=== PATIENT | female | born 2000 | race Caucasian/White ===

== ENCOUNTER 2019-01-19 20:11 | Emergency (ER) | payer OTHER, SELFPAY ==
[2019-01-19 20:12] VITALS: BP 110/71; PULSE 75; RESP 16; TEMP 36.8; O2SAT 100; BMI 19.0
[2019-01-19 20:29] VITALS: O2SAT 100
--- NOTE | 2019-01-19 20:51 | EKG12_ITS ---
Test Reason : SOB Blood Pressure : / mmHG Vent. Rate : 079 BPM Atrial Rate : 079 BPM P-R Int : 148 ms QRS Dur : 084 ms QT Int : 412 ms P-R-T Axes : 059 088 034 degrees QTc Int : 472 ms Normal sinus rhythm Normal ECG Confirmed by KEITH MEJIA, LUIS ([id number]), editor city [place] ([id number]) on 01/22/2019 1:24:08 PM Referred By: [place] Confirmed By:LUIS PARKER MD
--- NOTE | 2019-01-19 20:51 | RAD_ITS ---
STUDY: X-RAY CHEST REASON FOR EXAM: Female, 18 years old. Substernal chest pain TECHNIQUE: PA and lateral views of the chest. COMPARISON: None. FINDINGS: EKG leads overlie the chest The lungs are clear and expanded. There is no demonstrated pleural abnormality. Normal size heart. Normal mediastinum and radha. Normal visualized pulmonary arteries. Normal visualized aortic arch and descending thoracic aorta. Normal visualized thoracic spine. Normal visualized ribs, clavicles, and shoulders. There is no demonstrated abnormality of the visualized soft tissue structures of the upper abdomen. RAD/Chest PA and Lateral IMPRESSION: Normal x-ray examination of the chest. Electronically Signed: Hudson Hobson MD at 22:39 EDT , Service support ,
--- NOTE | 2019-01-19 20:55 | ED.RN ---
NO OLD EKGS IN MUSE
[2019-01-19 20:59] LABS: Bacteria 0 SEEN /hpf (None Seen); Color, Urine Yellow (Yellow); Glucose, Dipstick Normal (Normal); Ketone-Dipstick Negative (Negative); Leukocyte Esterase-Dipstick Negative /ul (Negative); Mucous, Urine 0 SEEN /hpf (<or=2+); Nitrite-Dipstick Negative (Negative); Occult Blood-Urine Negative /ul (Negative); Protein-Dipstick Negative (Negative); Red Blood Cells-Urine 0 SEEN /hpf (0-5); Urine Bilirubin Dipstick Negative (Negative); Urine Clarity Sl. Cloudy (Clear); Urine Urobilinogen Normal (Normal); White Blood Cells 0 SEEN /hpf (0-5)
[2019-01-19 21:06] LABS: Squamous Epithelial Cells - UA 0-5 SEEN /hpf (5-10)
[2019-01-19 21:23] LABS: Absolute Lymphocyte Count 2.66 X10^3/ul (0.83-4.51); Absolute Neutrophil Count 2.1 X10^3/uL (2.0-7.7); Basophil# 0.01 X10^3/uL; Basophil% 0.2 % (0-1); Eosinophil# 0.07 X10^3/uL; Eosinophils% 1.3 % (0-5); Hematocrit 38.5 % (37-47); Hemoglobin 12.7 g/dl (12.0-15.0); Lymphocyte # 2.66 X10^3/ul (4.0); Lymphocyte % 50.7 % (19-41); Mean Corpuscular Hgb 28.8 pg (27.0-32.0); Mean Corpuscular Volume 87.3 fL (81-99); Mean Platelet Vol. 9.3 fl (6.2-12.0); Monocyte# 0.39 X10^3/uL; Monocyte% 7.4 % (0-10); Neutrophil # 2.12 X10^3/uL (2.7-7.7); Neutrophil % 40.4 % (47-70); Platelet Count 199 K/mm3 (150-450); RBC Distribution Width CV 13.2 % (11.6-14.6); RBC Distribution Width SD 42.4 fl (35.1-43.9); Red Blood Count 4.41 M/mm3 (4.2-5.4); White Blood Count 5.3 K/mm3 (4.4-11.0)
[2019-01-19 21:28] LABS: POSITIVE COUNT NO; POSITIVE DIFFERENTIAL NO; POSITIVE MORPHOLOGY NO
[2019-01-19] MEDS: 0.9% Normal Saline 1,000 ML 15 ML IV (21:30)
[2019-01-19 21:36] LABS: Internal QC Validated? YES +Cl - CLEAR BKGD; Pregnancy, Serum, hCG Quali. NEGATIVE Negative
[2019-01-19 21:43] LABS: BUN 12 mg/dL (7-18); Creatinine, Serum 0.77 mg/dL (0.55-1.02); EST Glomerular Filtration Rate 102 mL/min (>60); Estimated Creatinine Clearance 87.52 ml/min; Glucose 96 mg/dL (74-106)
[2019-01-19 21:44] LABS: Anion Gap 5 (5-15); BUN/Creat Ratio 15.7 RATIO (10-20); Calcium,Total 8.7 mg/dL (8.5-10.1); Chloride 108 mmol/L (98-107); Est Glom Filt Rate - Afr Amer 124 mL/min (>60); Potassium 3.7 mmol/L (3.5-5.1); Sodium Level 141 mmol/L (136-145); Thyroid Stim Hormone (TSH) 1.57 uIU/mL (0.358-3.74)
[2019-01-19 22:23] VITALS: BP 97/72; PULSE 71; RESP 22; O2SAT 98
[2019-01-19 22:38] LABS: D-Dimer Quantitative (DVT/PE) < 0.27 FEU/ug/m (0.27-0.49)
--- NOTE | 2019-01-19 22:48 | ED.VISSUMM ---
- ER Visit Summary Date of Service: 01/19/19 Chief Complaint: Shortness of breath History of Present Illness: The patient is a 18 F with shortness of breath on exertion and feeling easily fatigued for the past several months. This is progressively been worsening. She denies chest or abdominal pain. She reportedly had similar symptoms prior to having hiatal hernia surgery several years ago in [place]. Patient's last menstrual cycle was 1 week ago. She states she usually bleeds for 5 days and her periods have not recently been abnormally heavy. She does not have known history of anemia. Physical Examination: Vital signs are unremarkable. Pulse ox is 100% on room air. Patient sitting upright in bed no acute distress. Head and neck examination reveals pale lips with mildly pale conjunctiva. Heart is regular rate and rhythm. Lung sounds are clear. Abdomen is soft nontender. Test Results: EKG is sinus at 79 with no sign of acute ischemia. Chest x-ray is unremarkable. CBC and chemistry studies normal. D-dimer less than 0.27. test negative. TSH is normal. Emergency Department Course and Treatment: Patient was given IV fluids. Vital signs remained stable throughout her ED stay. I discussed with patient and family that her laboratory testing is unremarkable at this time. She is encouraged to follow-up with her primary care physician and return for any worsening symptoms or concerns. Treatment Plan: [] Disposition: Discharge Impression: Dyspnea, uncertain etiology This note was generated with [employer] dictation software. It may contain incorrect words, spelling, and punctuation that were not noted in review of the chart prior to signing ED Disposition - Plan for ED Patient: Disposition: Home or Assisted Living Instructions: ED Dyspnea Shortness of Breath Referrals: Sunday Thornton DO [Primary Care Provider] - 1 Week
[2019-01-19 22:59] VITALS: BP 96/65; PULSE 65; RESP 18; O2SAT 98
== END 2019-01-19 22:59 | disposition home or self-care (01) ==
PROVIDERS: Emergency Provider Emergency Medicine; Family Provider Family Medicine; PCP Family Medicine
DX: R06.00 Dyspnea, unspecified (principal); F32.9 Major depressive disorder, single episode, unspecified; Z79.899 Other long term (current) drug therapy
CPT/HCPCS: 71046; 80048; 81001; 84443; 84703; 85025; 85379; 93005; 99285; J7030; J7040